=== PATIENT | female | born 1990 | race Caucasian/White ===

== ENCOUNTER → 2018-02-18 | Outpatient (CLI) | payer BC ==
--- NOTE | 2018-02-18 16:57 | RAD ---
Sonography of the posterior left side of the neck Clinical indications: Mildly tender posterior left neck lump for 6 months. FINDINGS: High-resolution sonography of the area of interest of the posterior left neck was performed. There is a subcutaneous lymph node demonstrating normal lymph node sonographic architecture. The lymph node measures 10 mm x 3 mm x 8 mm in size. No abscess is seen. IMPRESSION: Normal-appearing lymph node is seen in the area of palpable abnormality. Therefore, with regard to any palpable abnormality, follow-up should be clinical. Electronically signed by: Deshawn Cowan MD (02/18/2018 4:53 PM) [place] [id number]
== END | disposition home or self-care (01) ==
LOC: US 12:46
DX: R22.1 Localized swelling, mass and lump, neck (principal)
CPT/HCPCS: 76536